=== PATIENT | female | born 1970 | race Caucasian/White ===

== ENCOUNTER 2022-12-03 13:24 | Outpatient (CLI) | payer OTHER | END 2022-12-03 13:26 | disposition home or self-care (01) | LOC: SONOGRAMA 13:24 | PROVIDERS: ATTEND Pathology Anatomic Pathology & Clinical Pathology | DX: D44.0 Neoplasm of uncertain behavior of thyroid gland (principal); E04.1 Nontoxic single thyroid nodule; D34 Benign neoplasm of thyroid gland; E07.9 Disorder of thyroid, unspecified ==